=== PATIENT | male | born 1990 | race Caucasian/White ===

== ENCOUNTER 2019-01-26 16:17 | Emergency (ER) | payer OTHER, BC ==
[2019-01-26 16:24] VITALS: BP 119/80; PULSE 83; TEMP 97.7; BMI 25.7
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
== END 2019-01-26 17:06 | disposition home or self-care (01) ==
LOC: JERFT 16:17
DX: S66.811A Strain of other specified muscles, fascia and tendons at wrist and hand level, right hand, initial encounter (principal); S46.812A Strain of other muscles, fascia and tendons at shoulder and upper arm level, left arm, initial encounter; Y35.811A Legal intervention involving manhandling, law enforcement official injured, initial encounter; Y93.89 Activity, other specified; Y92.89 Other specified places as the place of occurrence of the external cause; Y99.0 Civilian activity done for income or pay
CPT/HCPCS: 99281-25

== ENCOUNTER 2020-10-06 10:22 | Emergency (ER) | payer BC | END 2020-10-06 12:52 | disposition home or self-care (01) | LOC: JVIRT 10:22 | DX: Z11.59 Encounter for screening for other viral diseases (principal) | CPT/HCPCS: C9803; G2012-GT; U0003 ==

== ENCOUNTER 2020-11-02 10:43 | Emergency (ER) | payer BC | END 2020-11-02 12:48 | disposition home or self-care (01) | LOC: JVIRT 10:43 | DX: Z11.59 Encounter for screening for other viral diseases (principal) | CPT/HCPCS: C9803; G2251-GT; Q3014-GT; U0003 ==

== ENCOUNTER 2020-11-13 11:37 | Emergency (ER) | payer BC | END 2020-11-13 12:09 | disposition home or self-care (01) | LOC: JVIRT 11:37 | DX: Z20.822 Contact with and (suspected) exposure to COVID-19 (principal) | CPT/HCPCS: C9803; Q3014-GT; U0003 ==

== ENCOUNTER 2022-04-09 19:21 | Emergency (ER) | payer OTHER ==
[2022-04-09 19:28] VITALS: BP 146/89; PULSE 80; TEMP 98.4; BMI 25.7
== END 2022-04-09 20:14 | disposition home or self-care (01) ==
LOC: FER 19:21
DX: S80.211A Abrasion, right knee, initial encounter (principal); S60.511A Abrasion of right hand, initial encounter; S50.311A Abrasion of right elbow, initial encounter; W19.XXXA Unspecified fall, initial encounter
CPT/HCPCS: 99282-25